=== PATIENT | female | born 1985 | race African-American/Black ===

== ENCOUNTER 2017-03-25 18:11 | Emergency (ER) | payer OTHER ==
[~2017-03-25] VITALS: Ht 154.9 cm; Wt 59.0 kg
[~2017-03-25 18:11] MED LIST: AMOXICILLIN875 MG PO; AURALGAN EAR DR14 ML OTIC; CARISOPRODOL 3350 MG PO; CIPRO 500MG TA500 MG PO; NOHOMEMEDICATIONS; PYRIDIUM100 MG PO; RELAFEN500 MG PO; ULTRAM 50MG TAB50 MG PO
[2017-03-25 19:01] LABS: URINE BILIRUBIN NEGATIVE (Negative); URINE BLOOD TRACE (Negative); URINE CLARITY CLEAR; URINE COLOR YELLOW; URINE GLUCOSE-RANDOM NEGATIVE (Negative); URINE KETONES NEGATIVE (Negative); URINE LEUKOCYTES-REFLEX 1+ (Negative); URINE NITRITE-REFLEX NEGATIVE (Negative); URINE PROTEIN NEGATIVE (Negative); URINE UROBILINOGEN 0.2 E.U./dl (0.2-1.0)
[2017-03-25 19:09] LABS: SQUAMOUS 4-10 Moderate /LPF (0-3)
[2017-03-25 19:10] LABS: MUCUS 4-6 Moderate strn/LPF (None Seen); URINE WBC-REFLEX >25 Many /HPF (0-5); WBC CLUMPS Few (None Seen)
[2017-03-25 19:11] LABS: CASTS None Seen /LPF (None Seen); CRYSTALS None Seen /LPF (None Seen); URINE RBC 0-2 Rare /HPF (0-2)
[2017-03-25] MEDS ORDERED: BACTRIM DS TAB1 EACH PO (19:15)
[2017-03-25] MEDS ORDERED: PYRIDIUM200 MG PO (19:19)
[2017-03-25 19:28] VITALS: BP 110/77
== END 2017-03-25 19:29 | disposition home or self-care (01) ==
LOC: M.ERS 18:11
PROVIDERS: Nurse Practitioner Family
DX: N30.01 Acute cystitis with hematuria (principal); G51.0 Bell's palsy; F12.10 Cannabis abuse, uncomplicated

== ENCOUNTER 2018-04-14 20:32 | Emergency (ER) | payer OTHER ==
[~2018-04-14] VITALS: Ht 154.9 cm; Wt 57.3 kg
[~2018-04-14 20:32] MED LIST changes: +BACTRIM DS TAB1 EACH PO; +PYRIDIUM200 MG PO
[2018-04-14 21:18] LABS: HEMATOCRIT 39.8 % (37.0-47.0); HEMOGLOBIN 13.4 gm/dL (12.0-15.0); MCH 31.9 pg (26.0-34.0); MCHC 33.7 g/dL (28.0-37.0); MCV 94.6 fL (80.0-100.0); MPV 9.4 fl. (7.2-11.1); NUCLEATED RBCS 0 /100WBC; PLATELET COUNT* 198 thou/uL (150-400); RDW-CV 13.1 % (10.5-14.5); WBC 13.9 thou/uL (4.0-11.0)
[2018-04-14 21:27] LABS: CALCIUM 9.3 mg/dL (8.5-10.1); CREATININE 0.8 mg/dL (0.6-1.3); POTASSIUM 3.3 mmol/L (3.5-5.1)
[2018-04-14 21:31] LABS: ALBUMIN 3.8 g/dL (3.4-5.0); TOTAL BILIRUBIN 0.5 mg/dL (<0.1-1.0); TOTAL PROTEIN 8.9 g/dL (6.4-8.2)
[2018-04-14 21:42] LABS: URINE BILIRUBIN NEGATIVE (Negative); URINE BLOOD 3+ (Negative); URINE CLARITY CLEAR; URINE COLOR YELLOW; URINE GLUCOSE-RANDOM NEGATIVE (Negative); URINE KETONES 2+ (Negative); URINE LEUKOCYTES-REFLEX 3+ (Negative); URINE NITRITE-REFLEX POSITIVE (Negative); URINE PROTEIN TRACE (Negative); URINE SPECIFIC GRAVITY 1.015 (1.005-1.030); URINE UROBILINOGEN 0.2 E.U./dl (0.2-1.0)
[2018-04-14 22:25] LABS: ABSOLUTE LYMPHOCYTES 0.8 thou/uL (0.8-5.3); ABSOLUTE MONOCYTES 0.3 thou/uL (0.0-1.2); ABSOLUTE NEUTROPHILS 12.8 thou/uL (1.6-8.1); PLATELET ESTIMATE ADEQUATE
[2018-04-14 22:28] LABS: CASTS None Seen /LPF (None Seen); SQUAMOUS 0-3 Few /LPF (0-3)
[2018-04-14 22:28] LABS: INFLUENZA A ANTIGEN None Detected (None Detect); INFLUENZA B ANTIGEN None Detected (None Detect)
[2018-04-14 22:29] LABS: URINE WBC-REFLEX >25 Many /HPF (0-5)
[2018-04-14] MEDS ORDERED: ZOFRAN ODT4 MG PO (22:29)
[2018-04-14] MEDS ORDERED: MACROBID 100 M100 M1 PO (22:29)
[2018-04-14 22:30] LABS: CRYSTALS None Seen /LPF (None Seen); URINE RBC 3-10 Few /HPF (0-2)
[2018-04-14 23:14] VITALS: BP 107/65
== END 2018-04-14 23:16 | disposition home or self-care (01) ==
LOC: M.ERS 20:32
PROVIDERS: Nurse Practitioner Family
DX: N39.0 Urinary tract infection, site not specified (principal); R11.2 Nausea with vomiting, unspecified; Z91.040 Latex allergy status; Z98.890 Other specified postprocedural states